=== PATIENT | male | born 1970 | race Two or more races ===

== ENCOUNTER 2019-12-27 10:55 | Emergency (ER) | payer OTHER, SELFPAY ==
[~2019-12-27] VITALS: Ht 182.9 cm; Wt 122.5 kg
[2019-12-27 11:26] LABS: Basophils # (auto) 0.1 10 ^3/uL (0-0.2); Basophils % (auto) 0.5 % (0.0-2.0); Eosinophils # (auto) 0.1 10 ^3/uL (0-0.8); Eosinophils % (auto) 0.7 % (0.0-7.0); Hematocrit 47.1 % (41.0-53.0); Hemoglobin 16.3 g/dL (13.5-17.5); Lymphocytes # (auto) 1.9 10 ^3/uL (0.4-5.4); Lymphocytes % (auto) 15.5 % (10.0-50.0); Mean Corpuscular Hgb Conc. 34.6 g/dL (32.0-36.0); Mean Corpuscular Volume 86.8 fL (80.0-100.0); Monocytes # (auto) 0.5 10 ^3/uL (0-1.3); Monocytes % (auto) 3.8 % (0.0-12.0); Neutrophils % (auto) 79.5 % (37.0-80.0); Nucleated Red Blood Cells % 0.5 %; Platelet Count (auto) 245 10^3/uL (140-450); Red Blood Cells 5.43 10^6/uL (4.5-5.90); Red Cell Distribution Width 12.9 % (11.8-14.3); White Blood Cell 12.5 10^3/uL (4.4-10.8)
[2019-12-27 12:10] LABS: Chloride 106 mmol/L (98-107); Potassium 4.1 mmol/L (3.5-5.1); Sodium 137 mmol/L (136-145)
[2019-12-27 12:26] LABS: Anion Gap 8 (5-15); Carbon Dioxide 23 mmol/L (21-32); Glucose 116 mg/dL (74-106)
[2019-12-27 12:27] LABS: Alanine Aminotransferase 60 U/L (16-61); Alkaline Phosphatase 58 U/L (45-117); Aspartate Aminotransferase 30 U/L (15-37); BUN/Creatinine Ratio 11.5; Blood Urea Nitrogen 10 mg/dL (7-18); Calcium 9.3 mg/dL (8.5-10.1); GFR African American 120 mL/min; GFR Non-African American 99 mL/min
[2019-12-27 12:28] LABS: Albumin 4.3 g/dL (3.4-5.0); Bilirubin, Total 0.4 mg/dL (0.2-1.0); Total Protein 8.4 g/dL (6.4-8.2)
[2019-12-27 12:31] VITALS: BP 125/81
[2019-12-27 13:02] LABS: Ferritin 781.9 ng/mL (10-322); Prolactin 7.6 ng/mL (2.8-29.2)
== END 2019-12-27 13:00 | disposition home or self-care (01) ==
LOC: ER 10:55
DX: J18.9 Pneumonia, unspecified organism (principal); E78.5 Hyperlipidemia, unspecified; M10.9 Gout, unspecified
CPT/HCPCS: 36415; 71046; 80053; 82728; 83880; 84146; 84484; 85025; 85379; 87070; 87804; 87880; 93005

== ENCOUNTER 2021-09-04 22:42 | Emergency (ER) | payer OTHER ==
[~2021-09-04] VITALS: Ht 182.9 cm; Wt 120.2 kg
[2021-09-05] MEDS ORDERED: ONDANSETRON ODT 4 MG TAB PO ONE (01:15)
[2021-09-05] MEDS ORDERED: MORPHINE SULFATE 4 MG/ML SYR/VIAL IM ONE (01:15)
[2021-09-05] MEDS ORDERED: IBUP800T27 PO (03:07)
[2021-09-05 04:00] VITALS: BP 158/87
== END 2021-09-05 03:35 | disposition home or self-care (01) ==
LOC: ER 22:46
DX: S83.8X1A Sprain of other specified parts of right knee, initial encounter (principal); M10.9 Gout, unspecified; E78.5 Hyperlipidemia, unspecified; Z87.891 Personal history of nicotine dependence; Z88.8 Allergy status to other drugs, medicaments and biological substances; W22.8XXA Striking against or struck by other objects, initial encounter; Y93.89 Activity, other specified; Y92.89 Other specified places as the place of occurrence of the external cause; Y99.8 Other external cause status
CPT/HCPCS: 29505; 73562; 73700; 99284; J2270; Q0162